=== PATIENT | male | born 1990 | race Caucasian/White ===

== ENCOUNTER 2019-07-21 10:04 | Outpatient (CLI) | payer BC, SELFPAY ==
--- NOTE | ~2019-07-21 | XR_ITS ---
EXAMINATION: XR ankle RT min 3V EXAM DATE: 07/21/2019 10:51 INDICATION: No known recent injury provided at this time. Pain of the right ankle. TECHNIQUE: Right ankle frontal, lateral and oblique projections obtained and reviewed. There is no p rior study for comparison. FINDINGS: The right ankle mortise appears intact. Old right ankle fractures, distal fibular fractu res with supporting hardware. Fibular plate. No lucency surrounding the hardware. There is moderate r ight ankle osteoarthritis, likely secondary to posttraumatic etiology. There may be an ankle joint ef fusion. There are no acute fractures identified. There are no bony erosions identified. IMPRESSION: 1. Old right fibular, distal tibial fractures with supporting hardware. 2. Moderate right ankle osteoarthritis. 3. Probable ankle joint effusion. Reviewed, dictated and finalized at location A. [employer]
== END 2019-07-21 10:05 ==
PROVIDERS: PCP Family Medicine; Visit Provider Nurse Practitioner Family
DX: M25.471 Effusion, right ankle (principal); M19.071 Primary osteoarthritis, right ankle and foot
CPT/HCPCS: 73610

== ENCOUNTER 2020-10-25 13:12 | Outpatient (CLI) | payer BC, SELFPAY ==
--- NOTE | ~2020-10-25 | XR_ITS ---
EXAMINATION: XR chest 2V 10/25/2020 13:25 INDICATION: Cough PROCEDURE: PA and lateral views of the chest COMPARISON: No prior studies for comparison. FINDINGS: The lungs are clear. The cardiomediastinal silhouette is within normal limits. There are no pleural effusions. There is no pneumothorax suspected. IMPRESSION: 1: NO ACUTE CARDIOPULMONARY DISEASE. Reviewed, dictated and finalized at location B.
== END 2020-10-25 13:13 | disposition home or self-care (01) ==
PROVIDERS: PCP Family Medicine; Visit Provider Nurse Practitioner Family
DX: R05 Cough (principal)
CPT/HCPCS: 71046

== ENCOUNTER → 2021-04-02 02:07 | Outpatient (CLI) | payer BC, SELFPAY ==
[2021-04-02 18:47] LABS: SARS-CoV-2 RNA PCR Positive
== END ==
PROVIDERS: PCP Family Medicine; Visit Provider Nurse Practitioner Family
DX: U07.1 COVID-19 (principal)
CPT/HCPCS: C9803; U0003; U0005

== ENCOUNTER → 2021-05-24 08:57 | Outpatient (CLI) | payer BC, SELFPAY ==
[2021-05-25 10:42] LABS: Influenza Control Positive
[2021-05-25 16:23] LABS: SARS-CoV-2 RNA PCR Positive
== END ==
PROVIDERS: PCP Family Medicine; Visit Provider Nurse Practitioner Family
DX: U07.1 COVID-19 (principal)
CPT/HCPCS: 87502; 87804; C9803; U0003; U0005

== ENCOUNTER 2021-05-26 11:55 | Emergency (ER) | payer BC, SELFPAY ==
--- NOTE | ~2021-05-26 | XR_ITS ---
EXAMINATION: XR chest 1V portable INDICATION: COVID pneumonia, shortness of breath TECHNIQUE: Portable AP chest at 1659 hours COMPARISON: 10/25/2020 FINDINGS: There are minimal patchy airspace opacities throughout the lungs. There is no pleural effus ion or pneumothorax. The cardiomediastinal silhouette is normal. IMPRESSION: 1. Patchy bilateral airspace opacities, likely pneumonia. Reviewed, dictated and finalized at location F. HEMIST
[2021-05-26 12:36] VITALS: BP 160/81; PULSE 76; O2SAT 100
--- NOTE | 2021-05-26 13:36 | ECG_ITS ---
Measurements Intervals [place] Rate: 59 P: 32 MI: 171 QRS: 16 QRSD: 105 T: 12 QT: 415 QTc: 413 Interpretive Statements SINUS BRADYCARDIA DELAYED PRECORDIAL R/S TRANSITION BORDERLINE ECG Electronically Signed On 05-26-2021 13:58:15 [employer] by Be Mclaughlin D.O.
[2021-05-26 14:34] VITALS: BP 139/89; PULSE 59; RESP 16; TEMP 36.2; O2SAT 100
--- NOTE | 2021-05-26 16:19 | ED.CHESTPAIN ---
HPI - Chest Pain General Chief Complaint: Chest Pain Stated Complaint: COVID + , chest pain, high bp Time Seen by Provider: 05/26/21 16:19 Source: patient Mode of arrival: ambulatory Limitations: no limitations History of Present Illness HPI narrative: The patient is a 30 yo male with a history of polycystic kidney disease, COVID + (05/24/21) presenting for evaluation of chest pain. Patient states that almost a week ago patient had an episode of chest pain associated with nausea and an episode of chest pain. Pain is in the middle of the chest and radiates into the left arm. Pain is dull, aching. Patient was noted to be hypertensive today after patient monitored his BP a home. Patient's PCP's office referred him to this facility. Patient received one Danilo and Danilo vaccine. Pt's pain has been intermittent. Pt also reports fever, congestion, nausea, fatigue, cough, dyspnea. Pt also with loose stools. He denies any dysuria or hematuria. Related Data Allergies Allergy/AdvReac Type Severity Reaction Status Date / Time Penicillins Allergy Unknown Rash Verified 05/26/21 16:46 Review of Systems Review of Systems: CONSTITUTIONAL:Reports fever and chills EYES: Denies visual changes, redness, or discharge. ENT: Reports rhinorrhea, congestion CARDIOVASCULAR: Reports chest pain, denies palpitations RESPIRATORY: Reports cough and dyspnea GASTROINTESTINAL: Denies abdominal pain, reports nausea and vomiting, reports diarrhea GENITOURINARY: Denies dysuria or hematuria. SKIN: Denies rash or itching. MUSCULOSKELETAL: Denies back pain, joint pain, or myalgia. NEUROLOGIC: Denies headache, numbness, or weakness. [facility] Past Medical History Medical History (Updated 05/26/21 @ 18:02 by Savita Griffiths MD) BMI 34.0-34.9,adult Bronchitis Cough COVID-19 Exposure to COVID-19 virus History of fracture of right ankle Polycystic kidney Tinea corporis Viral illness Family History Family History Father Hypertension Mother Asthma Adult-onset Still's disease ADHD Sibling No problems noted. 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 Gender identity (if verbalized by the patient): Male Exam Narrative: GENERAL: Awake, alert, conversant HEAD: Normocephalic, atraumatic. EYES: PERRLA and EOMI. ENT: Nares clear, no rhinorrhea or epistaxis. Mucous membranes moist. NECK: Supple. CHEST: No respiratory distress, breathing even and non labored, no chest wall pain HEART: Regular rate, sinus rhythm ABDOMEN:Non distended, non tender EXTREMITIES: Normal range of motion. No edema. SKIN: Warm, dry, no rash. NEURO:No focal deficits. Alert and oriented x3 Course Vital Signs Vital signs: Vital Signs Pulse Rate 76 05/26/21 12:36 Blood Pressure 160/81 H 05/26/21 12:36 Pulse Oximetry 100 05/26/21 12:36 Temperature 36.2 C L 05/26/21 14:34 Pulse Rate 68 05/26/21 16:43 Respiratory Rate 15 05/26/21 16:39 Blood Pressure 163/94 H 05/26/21 16:39 Pulse Oximetry 99 05/26/21 16:43 MDM - Chest Pain MDM Narrative Medical decision making narrative: Patient has a history of Covid. Patient is well-appearing at the time of assessment. No acute ischemic changes on EKG. Presented for evaluation of chest pain over the past week. Patient's EKG and labs are without significant high risk changes. Cardiac risk factors reviewed. Patient is felt low risk for ACS and reasonable for further risk stratification testing as an outpatient. Initial troponin is undetected. D-dimer is not elevated. Pain was not sudden or maximal or ons
[2021-05-26 16:39] VITALS: BP 163/94; PULSE 64; RESP 15; O2SAT 99
[2021-05-26 16:43] VITALS: PULSE 68; O2SAT 99
[2021-05-26 17:06] LABS: Basophils Percent Auto 0.5 % (0.2-1.2); Eosinophils Absolute Auto 0.1 K/mm3 (0-0.3); Eosinophils Percent Auto 0.9 % (0-4.4); Immature Granulocyte Absolute 0.02 K/mm3 (0.00-0.031); Immature Granulocyte Percent A 0.2 % (0-0.5); Lymphocytes Absolute Auto 1.29 K/mm3 (0.9-3.2); Lymphocytes Percent Auto 16.1 % (18.3-44.2); Mean Corpuscular HGB Conc 33.3 g/dl (32-36); Mean Corpuscular Hemoglobin 30.1 pg (26-34); Mean Corpuscular Volume 90.4 fl (80-100); Mean Platelet Volume 10.6 fl (7.4-10.4); Monocytes Absolute Auto 0.3 K/mm3 (0.1-0.6); Monocytes Percent Auto 3.4 % (2.6-8.5); Neutrophils Absolute Auto 6.3 K/mm3 (1.3-6.7); Neutrophils Percent Auto 78.9 % (45.5-73.1); Platelet Count Result 209 k/mm3 (150-375); Red Blood Count 4.98 M/mm3 (4.6-6.20)
[2021-05-26] MEDS: SODIUM CHLORIDE 0.9% IV 1,000 ML 999 ML IV CONT (17:07)
[2021-05-26] MEDS: ASPIRIN 81 MG CHEWABLE TABLET 324 MG PO (17:07)
[2021-05-26] MEDS: ONDANSETRON INJ 4 MG/2 ML VIAL IV PUSH (17:07)
[2021-05-26 17:16] LABS: Add Urine Microscopic? NO; Appearance Urine Clear (Clear); Bilirubin Urine Negative (Negative); Blood Urine Negative (Negative); Color Urine Yellow (Yellow); Glucose Urine UA Negative (Negative); Ketones Urine Negative (Negative); Leukocyte Esterase Ur Negative LEU/UL (Negative); Nitrate Urine Negative (Negative); Protein Urine Negative (Negative); Specific Grav Ur 1.015 (1.001-1.035); Urobilinogen Urine Negative mg/dL (<2.0)
[2021-05-26 17:28] LABS: Alanine Aminotransferase 34 U/L (4-50); Albumin Level 4.5 g/dL (3.5-5.1); Alkaline Phosphatase 75 U/L (38-126); Anion Gap 11 mmol/L (8-16); Aspartate Amino Transferase 24 U/L (17-59); Bilirubin,Total 0.6 mg/dL (0.2-1.3); Blood Urea Nitrogen 10 mg/dL (9-20); Calcium 9.9 mg/dL (8.4-10.2); Carbon Dioxide 28 mmol/L (22-30); Chloride 101 mmol/L (98-107); Estimated CRCL calculation 125 ml/min; Estimated Glomerular Filt Rate > 60; Glucose 137 mg/dL (65-110); Lipase 222 U/L (23-300); Potassium 3.5 mmol/L (3.4-5.0); Sodium 140 mmol/L (137-145)
[2021-05-26 17:29] LABS: D Dimer 0.27 ug/mL (<0.48)
[2021-05-26 17:40] LABS: NT Pro B Type Natriuretic Pept 85 pg/mL (5-100); Troponin I < 0.012 ng/mL (0.000-0.034)
[2021-05-26 18:20] VITALS: BP 144/79; PULSE 63; RESP 20; O2SAT 100
== END 2021-05-26 18:22 | disposition home or self-care (01) ==
PROVIDERS: Emergency Provider Emergency Medicine; PCP Family Medicine
DX: U07.1 COVID-19 (principal); J12.82 Pneumonia due to coronavirus disease 2019; R07.89 Other chest pain; Q61.3 Polycystic kidney, unspecified; Z87.891 Personal history of nicotine dependence; R00.1 Bradycardia, unspecified
CPT/HCPCS: 36415; 71045; 80053; 81003; 83690; 83880; 84484; 85025; 85380; 93005; 96361; 96374; 99284; A9270; J2405; J7030

== ENCOUNTER 2021-06-09 16:41 | Outpatient (CLI) | payer BC, SELFPAY ==
--- NOTE | ~2021-06-09 | XR_ITS ---
XR chest 2V DATE: 06/09/2021 17:16 INDICATION: Covid 19 infection TECHNIQUE: 2 views COMPARISON: 05/26/2021 portable AP chest FINDINGS: Normal heart size. No hilar or mediastinal enlargement. No pulmonary infiltrate or consolid ation, pleural effusion or pulmonary vascular congestion or pneumothorax. Included skeletal structure s are unremarkable. IMPRESSION: Negative chest Reviewed, dictated and finalized at location A. [employer] IMPRESSION: Negative chest
== END 2021-06-09 16:42 ==
LOC: MICIMG 16:43
PROVIDERS: PCP Nurse Practitioner Family; Visit Provider Nurse Practitioner Family
DX: U07.1 COVID-19 (principal)
CPT/HCPCS: 71046